=== PATIENT | male | born 1970 | race African-American/Black ===

== ENCOUNTER 2019-12-03 19:02 | Inpatient (IN) | payer MEDICARE, MEDICAID, SELFPAY ==
--- NOTE | ~2019-12-03 | US_ITS ---
EXAMINATION: US venous doppler [facility] DATE: 12/08/2019 09:18 INDICATION: Lower limb edema. Acute pulmonary embolus. TECHNIQUE: Grayscale ultrasound images without and with compression and Doppler ultrasound images of the bilateral lower extremity veins were obtained. COMPARISON: None. FINDINGS: The visualized portions of right common femoral vein, profunda (deep) femoral vein, femoral vein, pop liteal vein, peroneal veins, posterior tibial veins, and greater saphenous vein outflow are patent. S ubcutaneous edema is noted. The visualized portions of left common femoral vein, profunda femoral vein, femoral vein, popliteal v ein, peroneal veins, posterior tibial veins, and greater saphenous vein outflow are patent. Subcutane ous edema is noted. IMPRESSION: 1. No deep venous thrombosis. Reviewed, dictated and finalized at location A. WAREHOUSE MANAGER
--- NOTE | ~2019-12-03 | CT_ITS ---
EXAMINATION: CTA chest PE protocol DATE: 12/07/2019 08:53 INDICATION: Cough and shortness of breath. TECHNIQUE: Computed tomography angiography (CTA) of the chest was performed with 100 mL Omnipaque-350 intravenous contrast timed to evaluate the pulmonary arteries. Coronal maximum intensity projection 3D-reconstructions were created by the technologist. Automated exposure control and iterative reconst ruction technique were employed. The dose-length product was 529.13 mGy-cm. COMPARISON: None. FINDINGS: There are small pleural effusions. The lungs demonstrate groundglass opacities and smooth s eptal thickening, consistent with pulmonary edema. There is mild atelectasis bilaterally. There are a irspace opacities in right lower lobe, consistent with atelectasis versus pneumonia. Cardiomegaly is noted. There is a small pericardial effusion. The central pulmonary arteries are enlarged, consistent with pulmonary arterial hypertension. There is no pulmonary embolus. Body wall edema is noted. There are bridging endplate osteophytes at multiple levels in the spine, consistent with diffuse idiopathi c skeletal hyperostosis (DISH). IMPRESSION: 1. No pulmonary embolus. 2. Mild pulmonary edema. 3. Small pleural effusions. 4. Airspace opacities in right lower lobe, consistent with atelectasis versus pneumonia. 5. Cardiomegaly. 6. Small pericardial effusion. Reviewed, dictated and finalized at location A. AP MAN IMPRESSION: 1. No pulmonary embolus. 2. Mild pulmonary edema. 3. Small pleural effusions. 4. Airspace opacities in right lower lobe, consistent with atelectasis versus p neumonia. 5. Cardiomegaly. 6. Small pericardial effusion.
--- NOTE | ~2019-12-03 | XR_ITS ---
EXAMINATION: XR chest 2V EXAM DATE: 12/03/2019 19:59 INDICATION: Shortness of breath, history of lung disease. TECHNIQUE: Frontal and lateral projections of the chest obtained and reviewed. There is no prior harlan dy for comparison. FINDINGS: There is cardiomegaly and pulmonary vascular congestion. There is indistinct reticulation with a bibasal predominance which may indicate pulmonary edema. Small to moderate bilateral pleural e ffusions. Overall appearance is consistent with CHF exacerbation. No pneumothorax. Patient has diffus e idiopathic skeletal hyperostosis (DISH). IMPRESSION: Findings consistent with moderate CHF exacerbation. Reviewed, dictated and finalized at location A. NOL OPERATIONS MANAGER
--- NOTE | 2019-12-03 19:07 | ECG_ITS ---
Measurements Intervals [place] Rate: 96 P: 35 IA: 150 QRS: 72 QRSD: 93 T: 0 QT: 371 QTc: 469 Interpretive Statements SINUS RHYTHM POSSIBLE LEFT ATRIAL ENLARGEMENT LOW QRS VOLTAGE IN PRECORDIAL LEADS DELAYED PRECORDIAL R/S TRANSITION BORDERLINE T WAVE ABNORMALITY- INF/LAT LEADS BORDERLINE ECG Electronically Signed On 12-03-2019 19:46:13 TICKET SCHEDULER by Kory Soliz D.O.
[2019-12-03 19:08] VITALS: BP 180/118; PULSE 103; RESP 20; TEMP 36.8; O2SAT 100
[2019-12-03 19:22] LABS: Basophils Percent Auto 0.2 % (0.2-1.2); Eosinophils Percent Auto 0.3 % (0-4.4); Hematocrit 38.4 % (42.0-52.0); Hemoglobin 11.8 g/dL (14.0-18.0); Immature Granulocyte Absolute 0.04 K/mm3 (0.00-0.031); Immature Granulocyte Percent A 0.6 % (0-0.5); Lymphocytes Percent Auto 16.7 % (18.3-44.2); Mean Corpuscular HGB Conc 30.7 g/dl (32-36); Mean Corpuscular Hemoglobin 24.8 pg (26-34); Mean Corpuscular Volume 80.7 fl (80-100); Monocytes Absolute Auto 0.6 K/mm3 (0.1-0.6); Monocytes Percent Auto 9.6 % (2.6-8.5); Neutrophils Absolute Auto 4.8 K/mm3 (1.3-6.7); Neutrophils Percent Auto 72.6 % (45.5-73.1); Platelet Count Result 662 k/mm3 (150-375); Red Blood Count 4.76 M/mm3 (4.6-6.20); White Blood Count 6.6 K/mm3 (4.5-10.0)
[2019-12-03 19:33] LABS: Blood Urea Nitrogen 49 mg/dL (9-20); Calcium 8.2 mg/dL (8.4-10.2); Carbon Dioxide 24 mmol/L (22-30); Chloride 104 mmol/L (98-107); Estimated CRCL calculation 72 ml/min; Estimated Glomerular Filt Rate > 60; Glucose 111 mg/dL (75-110); Potassium 3.6 mmol/L (3.4-5.0); Sodium 138 mmol/L (137-145)
[2019-12-03 22:00] VITALS: O2SAT 98
[2019-12-03 22:26] VITALS: BP 172/129; PULSE 101; PULSE 99; RESP 28; O2SAT 100
--- NOTE | 2019-12-03 22:27 | ED.SOB ---
HPI - SOB/Dyspnea General Chief Complaint: Shortness of Breath/Dyspnea Stated Complaint: sob Time Seen by Provider: 12/03/19 22:15 Source: patient and RN notes reviewed Mode of arrival: ambulatory Limitations: no limitations History of Present Illness HPI Narrative: Pt is a 49 y/o male presenting to the ED c/o SOB. Pt reports he has been experiencing SOB for about 3 weeks. Pt's mother at bedside notes the pt was seen at [facility] about 2 weeks ago where he was diagnosed with CHF and Cardiomegaly, and prescribed a diuretic. Pt also reports BLE swelling, but denies CP. Per mother, the pt has not been taking his medications appropriately and has not followed up with a Pulverizer Operator. Pt states he quit smoking years ago. Pt notes he does not normally lay supine due to L-Spine Arthritis. Pertinent past history: congestive heart failure Onset (ago): week(s) (3) Associated symptoms: other (BLE swelling) Review of Systems Review of Systems: All systems reviewed & are unremarkable except as noted in HPI and below Cardiovascular: Cardiovascular: Denies chest pain Respiratory: Respiratory: Reports dyspnea Integumentary/Breasts: Skin/Breast: Reports swelling (BLE) [facility] Past Medical History Medical History Cardiomegaly CHF (congestive heart failure) HTN (hypertension) Surgical History Surgical History No significant past surgical history Social History Social History Smoking status: Former smoker Gender identity (if verbalized by the patient): Male Exam Narrative: Exam Narrative: APPEARANCE: No acute distress, nontoxic, resting in bed EYES: EOMI HEENT: Normocephalic, atraumatic, OMM RESPIRATORY: No respiratory distress crackles in bilateral bases CARDIOVASCULAR: Regular rate and rhythm without murmurs rubs or gallops. ABDOMINAL: Soft, nontender, nondistended, no rebound or guarding MUSCULOSKELETAl: Moves all extremities. No clubbing, cyanosis 4+ edema in the bilateral lower extremities NEURO: Awake and alert. Following commands, speech normal, no focal deficits SKIN:: Warm, dry. No rashes lesions or abrasions PSYCHIATRIC: Normal affect/mood, Course Course Emergency Course: Discussed with Dr. Peralta presentation work-up. Agrees with admission at this time Discussed with patient and family results of workup and diagnosis. Discussed need for admission. Patient and family understand and agree to current treatment plan Vital Signs Vital signs: Vital Signs Temperature 98.3 F 12/03/19 19:08 Pulse Rate 103 H 12/03/19 19:08 Respiratory Rate 20 12/03/19 19:08 Blood Pressure 180/118 H 12/03/19 19:08 Pulse Oximetry 100 12/03/19 19:08 Temperature 98.3 F 12/03/19 19:08 Pulse Rate 101 H 12/03/19 22:26 Respiratory Rate 28 H 12/03/19 22:26 Blood Pressure 172/129 H 12/03/19 22:26 Pulse Oximetry 100 12/03/19 22:26 MDM - SOB/Dyspnea Lab Data Result diagrams: 12/03/19 19:13 12/03/19 19:13 Labs: Lab Results 12/03/19 12/03/19 12/03/19 Range/Units 19:13 19:13 23:04 WBC 6.6 (4.5-10.0) K/mm3 RBC 4.76 (4.6-6.20) M/mm3 Hgb 11.8 L (14.0-18.0) g/dL Hct 38.4 L (42.0-52.0) % MCV 80.7 (80-100) fl MCH 24.8 L (26-34) pg MCHC 30.7 L (32-36) g/dl RDW 19.0 H (11.5-14.5) % Plt Count 662 H (150-375) k/mm3 MPV 9.0 (7.4-10.4) fl Immature Gran % (Auto) 0.6 H (0-0.5) % Neut % (Auto) 72.6 (45.5-73.1) % Lymph % (Auto) 16.7 L (18.3-44.2) % [place] % (Auto) 9.6 H (2.6-8.5) % Eos % (Auto) 0.3 (0-4.4) % Baso % (Auto) 0.2 (0.2-1.2) % Lymph # (Auto) 1.10 (0.9-3.2) K/mm3 [place] # (Auto) 0.6 (0.1-0.6) K/mm3 Eos # (Auto) 0.0 (0-0.3) K/mm3 Baso # (Auto) 0.0 (0.0-0.1) K/mm3 Abs Immat Gran (auto) 0.04 H (0.00-0.031) K/mm3 Absolute Neuts (auto) 4.8 (1.3-6.7) K/mm
[2019-12-03 23:10] VITALS: PULSE 98; RESP 12; O2SAT 98
[2019-12-03 23:24] LABS: INR 1.4; Partial Thromboplastin Time 24.5 SECONDS (22.3-36.8); Prothrombin Time 16.7 Seconds (11.1-14.7)
[2019-12-03 23:38] LABS: NT Pro B Type Natriuretic Pept 9820 PG/ML (5-100); Troponin I 0.032 ng/mL (0.000-0.034)
[2019-12-04] VITALS (15 sets, daily range): BP systolic 155–183; BP diastolic 80–123; PULSE 88–109; RESP 16–30; TEMP 36.1–37.2; O2SAT 94–100; BMI 34.4
[2019-12-04] MEDS: FUROSEMIDE INJ 40 MG/4 ML VIAL IV PUSH ×3 (00:17→22:04)
[2019-12-04] MEDS: NITROGLYCERIN OINTMENT 1 INCH DOSE 0.5 INCH TRANSDERM (00:18)
--- NOTE | 2019-12-04 01:58 | ADMGEN ---
This patient, Modesto Kim, was admitted to Medical Room 342-01. Patient/family oriented to hospital policies and general routines including ID bracelet, bed and alarms, visiting hours, pain management, procedures, bathroom and other care routines, personal items, smoking policy, room service/diet, and visiting hours. Valuables list has been completed. Information on how to activate the Rapid Response Team has been discussed. Patient/Family are encouraged to report perceived risks to care and to ask questions if they do not understand what they are told or what they should do.
[2019-12-04 04:30] LABS: Troponin I 0.034 ng/mL (0.000-0.034)
[2019-12-04 06:52] LABS: Troponin I 0.035 ng/mL (0.000-0.034)
--- NOTE | 2019-12-04 07:45 | PC.NURSE ---
MOTHER OF PATIENT STATES THAT HE USES [id number] TO FILL HIS MEDS. CALLED [facility] TO VERIFY MEDICATIONS. PHARMACIST STATED THAT PATIENT IN FACT HAD MEDICATIONS CALLED IN BY PHYSICIANS DATED BACK IN OCTOBER OF 2018. UNFORTUNATELY, THOSE MEDS WERE NEVER RETRIEVED BY THE PATIENT.
--- NOTE | 2019-12-04 08:43 | PM.IMHP ---
H&P: HPI History of Present Illness Chief complaint: CHF Narrative: Modesto Kim is a 49 year old male Who presented emergency room for swelling and shortness of breath. Patient states that this all started 4 weeks ago and he was hospitalized 1-2 weeks ago at [place] for this and was hospitalized for 3 days. He said after he was discharged from the hospital he felt a lot better and went home and it got worse. He said he was prescribed clonidine and hydrochlorothiazide and has been taking that but we called his pharmacy and they have no record of that. Patient states he has been having shortness of breath with rest and minor activity. He gets short of breath just walking to the bathroom. He states that his stomach is more distended, his hands are swollen, and his legs are swollen. He also mentions that his scrotum is swelling and actually has a split in it. He thinks this is from shaving in July but he has not had much discharge from it. The patient denies chest pain, nausea, vomiting, fevers, chills, headache, pain anywhere, previous DC or previous heart catheterization. Cannot tell me what type of heart failure he has. His last echo was at [facility] weeks ago. Unsure if he got a stress test but doesn't think so. He has not changed his diet and he tries to stay way from salt. His normal diet includes fish, spaghetti, and turkey. He does not recall ever trying a statin medication. He said he was diagnosed with schizophrenia when he was 16 but he prayed about it and now no longer has it and does not take any medications for. He does not see a master automotive glass technician. Review of Systems Review of Systems: All systems reviewed & are unremarkable except as noted in HPI and below PMFSH Past Medical History Medical History (Updated 12/04/19 @ 08:56 by Pretty Myrick PA-C) Cardiomegaly CHF (congestive heart failure) HTN (hypertension) Surgical History Surgical History (Updated 12/04/19 @ 08:50 by Pretty Myrick PA-C) H/O eye surgery No significant past surgical history Family History Family History (Updated 12/04/19 @ 08:51 by Pretty Myrick PA-C) Mother Healthy female Father Healthy male adult Sibling Asthma Social History Social History (Updated 12/04/19 @ 08:51 by Pretty Myrick PA-C) Social History: patient states that he does not smoke and has not done so for 20 years. He cannot tell me exactly how much he used to smoke before that but says it was a lot. He does not do any drugs. He drinks alcohol every once in a while. He is on disability due to back pain. Smoking packs per day: 3 Smoking cigarettes per day: 60.0 Smoking status: Former smoker Tobacco type: cigars Second hand tobacco smoke exposure: Yes Alcohol intake: current Drinks per week: 3 Substance use: never Gender identity (if verbalized by the patient): Male Spiritual care concerns: Yes Agree to blood products: Yes Meds Home Medications and Allergies Allergies Allergy/AdvReac Type Severity Reaction Status Date / Time No Known Allergies Allergy Verified 12/04/19 01:01 Vital Signs Vital Signs - 24 hr 12/03/19 19:08 12/03/19 22:00 12/03/19 22:26 Temperature 98.3 F Pulse Rate 103 H 99 Respiratory Rate 20 28 H Blood Pressure 180/118 H 172/129 H Pulse Oximetry 100 98 100 12/03/19 23:10 12/04/19 00:42 12/04/19 01:09 Temperature 99.0 F Pulse Rate 98 100 Respiratory Rate 12 30 H Blood Pressure 160/80 H 183/123 H Pulse Oximetry 98 100 12/04/19 01:41 12/04/19 02:00 12/04/19 06:00 Temperature 97.9 F 97.0 F L Pulse Rate 106 H 109 H 98 Respiratory Rate 27 H 20 Blood Pressure 174/120 H 159/114 H Pulse Oximetry 98 97 Exam Narrative: Exam Narrative: General: Overweight patient resting comfortably in bed in no acute distress HEENT: Normocephalic, atraumatic, PERRL, Sclerae anicteric, oral mucosa moist. Neck: Supple Resp: crackles at the bases. good air flow. Patien
[2019-12-04] MEDS: POTASSIUM CHLORIDE 20 MEQ TABLET.ER PO ×2 (11:00→16:52)
[2019-12-04] MEDS: METOPROLOL TARTRATE 25 MG TABLET PO ×2 (11:00→22:02)
[2019-12-04] MEDS: SILVERGEL (ELTA) 45 ML 1 APPLIC TOPICAL (12:53)
[2019-12-04] MEDS: hydrALAZINE HCL 20 MG/ML VIAL 10 MG IV PUSH (16:51)
--- NOTE | 2019-12-04 16:57 | PC.NURSE ---
Patient took shower and has no dressing on his scrotal wound area. He refuses to have dressing replaced to scrotal wound. He also refuses to wear scrotal support. He was instructed the benefits of wearing it and still refuses.
[2019-12-04 17:33] LABS: Add Urine Microscopic? YES; Appearance Urine Clear (Clear); Bilirubin Urine Negative (Negative); Blood Urine 1+ (Negative); Color Urine Colorless (Yellow); Glucose Urine UA Negative (Negative); Ketones Urine Negative (Negative); Leukocyte Esterase Ur Negative LEU/UL (Negative); Nitrate Urine Negative (Negative); Protein Urine 2+ mg/dL (Negative); RBC Urine 0-2 /hpf (0-2); Specific Grav Ur 1.008 (1.001-1.035); Urobilinogen Urine Negative mg/dL (<2.0); WBC Urine 0-3 /hpf
--- NOTE | 2019-12-04 18:30 | PC.NURSE ---
Sent fax to [facility] for medical release of patient information.
[2019-12-05] VITALS (11 sets, daily range): BP systolic 141–166; BP diastolic 94–104; PULSE 85–95; RESP 16–20; TEMP 36.4–37; O2SAT 100
[2019-12-05 06:07] LABS: Basophils Percent Auto 0.3 % (0.2-1.2); Eosinophils Absolute Auto 0.1 K/mm3 (0-0.3); Hemoglobin 10.8 g/dL (14.0-18.0); Immature Granulocyte Absolute 0.04 K/mm3 (0.00-0.031); Immature Granulocyte Percent A 0.6 % (0-0.5); Lymphocytes Absolute Auto 0.89 K/mm3 (0.9-3.2); Lymphocytes Percent Auto 12.4 % (18.3-44.2); Mean Corpuscular HGB Conc 30.9 g/dl (32-36); Mean Corpuscular Hemoglobin 24.8 pg (26-34); Mean Corpuscular Volume 80.3 fl (80-100); Mean Platelet Volume 9.1 fl (7.4-10.4); Monocytes Absolute Auto 0.8 K/mm3 (0.1-0.6); Monocytes Percent Auto 10.8 % (2.6-8.5); Neutrophils Absolute Auto 5.4 K/mm3 (1.3-6.7); Neutrophils Percent Auto 74.9 % (45.5-73.1); Nucleated Red Blood Cells Perc 0.3 % (0.0-0.2); Platelet Count Result 518 k/mm3 (150-375); Red Blood Count 4.36 M/mm3 (4.6-6.20); Red Cell Distribution Width 18.5 % (11.5-14.5); White Blood Count 7.2 K/mm3 (4.5-10.0)
[2019-12-05 06:43] LABS: Blood Urea Nitrogen 33 mg/dL (9-20); Calcium 7.9 mg/dL (8.4-10.2); Carbon Dioxide 27 mmol/L (22-30); Chloride 107 mmol/L (98-107); Estimated CRCL calculation 92 ml/min; Estimated Glomerular Filt Rate > 60; Glucose 85 mg/dL (75-110); Potassium 3.3 mmol/L (3.4-5.0); Sodium 140 mmol/L (137-145)
[2019-12-05 06:44] LABS: Alanine Aminotransferase 67 U/L (4-50); Albumin Level 2.6 g/dL (3.5-5.1); Alkaline Phosphatase 118 U/L (38-126); Aspartate Amino Transferase 73 U/L (17-59); Bilirubin,Total 0.6 mg/dL (0.2-1.3); Blood Urea Nitrogen 34 mg/dL (9-20); Calcium 7.9 mg/dL (8.4-10.2); Carbon Dioxide 27 mmol/L (22-30); Chloride 106 mmol/L (98-107); Estimated CRCL calculation 101 ml/min; Estimated Glomerular Filt Rate > 60; Glucose 85 mg/dL (75-110); Magnesium 1.9 mg/dL (1.6-2.3); Phosphorus 2.6 mg/dL (2.5-4.5); Potassium 3.3 mmol/L (3.4-5.0); Sodium 140 mmol/L (137-145)
--- NOTE | 2019-12-05 08:09 | PM.CNCAR ---
Assessment and Plan Assessment and plan (1) Anasarca: Code(s): R60.1 - Generalized edema Status: Acute Assessment and Plan: Agree with diuresis, follow up input and outputs closely. (2) Congestive heart failure: Code(s): I50.9 - Heart failure, unspecified Status: Acute Assessment and Plan: He seems to have congestive heart failure likely is more if right heart component in view of significant anasarca, but however he seems to have underlying left ventricular systolic failure with left ventricular systolic dysfunction. Will get echocardiogram to further define that and treat accordingly. Will add lisinopril to his current regimen, agree with diuresis, follow up input and outputs closely (3) Hypertension: Code(s): I10 - Essential (primary) hypertension Status: Acute Assessment and Plan: Will add lisinopril for better blood pressure control, follow BUN and creatinine closely Additional Plan Thank you for allowing me to participate in this patient's care, I will be following up with you. Please do not hesitate to call me for any other inquiry History of Present Illness History of Present Illness Consult date/time: 12/05/19 08:09 49 years old gentleman, with history of hypertension, came to the hospital because of for progressive worsening shortness breath, with significant orthopnea and severe leg swelling and abdominal distention. He stated that he has been feeling fatigued and weak for the past few weeks but lately more progressive shortness breath and significant orthopnea for the past few days. Noted to have +3 edema in both legs and abdominal ascites. Denies any chest pain, he stated that he was told in the past that he has congestive heart failure but he does not have regular follow up with any barrel tester and drainer or with any doctor. Denies any chest pain, gets occasional palpitation but no dizziness no syncope. Has moderate disease orthopnea as above severe leg swelling Reason For Visit: CHF [facility] Past Medical History Medical History Cardiomegaly CHF (congestive heart failure) HTN (hypertension) Surgical History Surgical History H/O eye surgery No significant past surgical history Family History Family History Mother Healthy female Father Healthy male adult Sibling Asthma Social History Social History Social History: patient states that he does not smoke and has not done so for 20 years. He cannot tell me exactly how much he used to smoke before that but says it was a lot. He does not do any drugs. He drinks alcohol every once in a while. He is on disability due to back pain. Smoking packs per day: 3 Smoking cigarettes per day: 60.0 Smoking status: Former smoker Tobacco type: cigars Second hand tobacco smoke exposure: Yes Alcohol intake: current Drinks per week: 3 Substance use: never Gender identity (if verbalized by the patient): Male Spiritual care concerns: Yes Agree to blood products: Yes Meds Home Medications and Allergies Home Medications Medication Instructions Recorded Confirmed Type No Home Medications 12/06/19 12/06/19 History Allergies Allergy/AdvReac Type Severity Reaction Status Date / Time No Known Allergies Allergy Verified 12/04/19 01:01 Vital Signs Vital Signs - 24 hr 12/04/19 11:00 12/04/19 12:00 12/04/19 13:06 Temperature Pulse Rate 102 H 99 88 Respiratory Rate Blood Pressure 158/115 H Pulse Oximetry 12/04/19 14:00 12/04/19 16:00 12/04/19 18:00 Temperature 36.2 C L Pulse Rate 94 95 Respiratory Rate 16 Blood Pressure 170/111 H 173/107 H Pulse Oximetry 94 12/04/19 20:00 12/04/19 22:00 12/04/19 22:02 Temperature 36.6 C Pulse Rate 105 H 1
[2019-12-05] MEDS: FUROSEMIDE INJ 40 MG/4 ML VIAL IV PUSH ×2 (08:52→22:14)
[2019-12-05] MEDS: POTASSIUM CHLORIDE 20 MEQ TABLET.ER PO ×2 (08:52→17:21)
[2019-12-05] MEDS: METOPROLOL TARTRATE 25 MG TABLET PO ×2 (08:53→22:12)
[2019-12-05] MEDS: lisinopriL 20 MG TABLET PO (09:07)
[2019-12-05] MEDS: SPIRONOLACTONE 25 MG TABLET PO (09:07)
[2019-12-05] MEDS: POTASSIUM CHLORIDE 20 MEQ TABLET 40 MEQ PO (10:51)
--- NOTE | 2019-12-05 14:39 | PM.IMPN ---
Progress Note: A&P Assessment and Plan (1) Congestive heart failure: Code(s): I50.9 - Heart failure, unspecified Status: Acute Assessment and Plan: -----continue 40 mg of Lasix IV. Cardiology added spironolactone as well. Echo pending. Still waiting on records from [facility]. he was hospitaized for 3 days due to this a couple weeks ago. He said he got better but is now more swollen. It is questionable if he was taking his medications. Patient's troponins are high end of normal and completely flat. He has no chest pain. No ACS suspected. He did have 2+ protein in his urine so we will get a urine protein and creatinine to ensure this is not nephrotic syndrome. His albumin 2.6. Cardiology has been consulted. (2) Hypertension: Code(s): I10 - Essential (primary) hypertension Status: Acute Assessment and Plan: ----- Last blood pressure 141/97. Continue Lasix, metoprolol, and spironolactone. Lisinopril added 12/05. (3) Thrombocytosis: Code(s): D47.3 - Essential (hemorrhagic) thrombocythemia Status: Acute Assessment and Plan: ----- 518 today. Will monitor (4) Anasarca: Code(s): R60.1 - Generalized edema Status: Acute Assessment and Plan: ----- likely due to heart failure and waiting for echo. See above (5) Wound, open, scrotum or testes: Code(s): S31.30XA - Unspecified open wound of scrotum and testes, initial encounter Status: Acute Assessment and Plan: ----- patient thinks this is from shaving months ago but it really looks like a fissure due to scrotal swelling. We will do silver gel and monitor the area. scrotal sling would also be helpful. Time Spent With Patient Time with patient: 25 - 35 minutes Subjective Date/time seen: 12/05/19 14:39 Interval history: Pt is a 49-year-old male here for fluid overload likely CHF. Patient was seen today and states that he feels less short of breath. He still feels very swollen. He is upset that he cannot have more liquids than what we are giving him. He denies chest pain, shortness of breath, dyspnea on exertion, fevers, chills or abdominal pain. Review of Systems Review of Systems: All systems reviewed & are unremarkable except as noted in HPI and below Exam Narrative: Exam Narrative: General: Overweight patient resting comfortably in bed in no acute distress HEENT: Normocephalic Neck: Supple Resp: CTA Heart: RRR with no murmurs. No worrisome telemetry reviews Abd: Soft, distended. Positive bowel sounds . No pain to palpation Skin: Warm and dry Extremities: significant swelling in the lower extremities 3+. swelling to his hands as well : scrotum swollen with a Smith type wound due to swelling. Did not look acutely infected. Neuro: Alert and Oriented x4 . CN 2-12 intact. No focal neurological deficits. Objective Data Vital Signs Vital Signs: Vital Signs - 24 hr 12/04/19 16:00 12/04/19 18:00 12/04/19 20:00 Temperature Pulse Rate 95 105 H Respiratory Rate Blood Pressure 173/107 H Pulse Oximetry 12/04/19 22:00 12/04/19 22:02 12/05/19 00:00 Temperature 97.8 F Pulse Rate 101 H 100 91 Respiratory Rate 22 H Blood Pressure 155/100 H Pulse Oximetry 100 12/05/19 05:50 12/05/19 08:00 12/05/19 08:48 Temperature 97.5 F L Pulse Rate 95 95 95 Respiratory Rate 16 16 Blood Pressure 154/95 H 166/104 H Pulse Oximetry 100 100 12/05/19 08:53 12/05/19 11:36 Temperature Pulse Rate 95 Respiratory Rate Blood Pressure 141/97 H Pulse Oximetry Intake/Output Intake/Output: Intake & Output 12/02/19 12/03/19 12/04/19 12/05/19 23:59 23:59 23:59 23:59 Intake Total 2450 240 Output Total 3800 3250 Balance -1350 -3010 Meds/Results Medications: Active Medications Generic Name Dose Route Start Last Admin Trade Name Freq PRN Reason Stop Dose Admin Enoxaparin Sodium 40 mg
[2019-12-05 15:21] LABS: Creatinine Urine 19.7 mg/dL; Total Protein Urine Random 66 mg/dL
[2019-12-06] VITALS (12 sets, daily range): BP systolic 109–144; BP diastolic 71–96; PULSE 78–104; RESP 16–18; TEMP 36.1–36.3; O2SAT 94–99
--- NOTE | 2019-12-06 | ECHO_ITS ---
Patient Info Name: Modesto Kim Age: 49 years : 1970 Gender: Male Ht: 71 in Wt: 214 lbs BSA: 2.23 m2 HR: 90 bpm BP: 144 / 96 mmHg Technical Quality: Good Exam Date: 12/06/2019 11:05 AM Exam Location: [facility] Pulmonary Patient Status: Inpatient Admit Date: 12/04/2019 Staff Ordering Physician: Demetrio Martin MD Fur Pointer: Kevin Law, KAEL, RT Attending Provider: Pretty Myrick PA-C Exam Type: CA echo doppler color flow Study Info Indications I50.9 - Heart failure, unspecified Complete two-dimensional, color flow and Doppler transthoracic echocardiogram is performed. Summary 1. Left ventricular chamber dimension is normal. 2. There is moderately increased left ventricular wall thickness. 3. Left ventricular systolic function is normal, estimated at 25-30%. 4. There is moderate to severe mitral valve regurgitation. 5. There is mild to moderate tricuspid valve regurgitation. 6. No pulmonary hypertension, estimated pulmonary arterial systolic pressure is 48 mmHg. Left Ventricle Left ventricular chamber dimension is normal. Left ventricular systolic function is normal, estimated at 25-30%. There is moderately increased left ventricular wall thickness. Left ventricular septal wall motion is abnormal with septal motion related to bundle branch block. The left ventricular diastolic function is grade III diastolic dysfunction. Right Ventricle Right ventricular chamber dimension is mildly enlarged. Right ventricular systolic function is normal. Left Atria Left atrial chamber dimension is mildly enlarged. Right Atria Right atrial chamber dimension is normal. Aortic Valve The aortic valve is trileaflet. There is no aortic valve sclerosis. There is no aortic valve stenosis. There is no aortic valve regurgitation. Pulmonic Valve The pulmonic valve is normal. There is no pulmonic valve stenosis. There is no pulmonic regurgitation. Mitral Valve The mitral valve has thickened leaflets and myxomatous leaflets. There is no mitral valve stenosis. There is moderate to severe mitral valve regurgitation. Tricuspid Valve The tricuspid valve leaflets are normal. There is no significant tricuspid valve stenosis. There is mild to moderate tricuspid valve regurgitation. No pulmonary hypertension, estimated pulmonary arterial systolic pressure is 48 mmHg. Pericardium/Pleural The pericardium appears normal. There is no pericardial effusion. Inferior Vena Cava Normal inferior vena cava with >50% collapse upon inspiration consistent with significantly elevated right atrial pressure, 15 mmHg. Aorta The aortic root size at the sinus of Valsalva is normal. The prox ascending aorta size is normal. Left Ventricular Outflow Tract Name Value Normal LVOT 2D LVOT Diameter 2.0 cm LVOT Doppler LVOT Peak Gradient 1 mmHg LVOT Mean Gradient 1 mmHg LVOT VTI 8 cm LVOT VTI/AV VTI Ratio 0.8 LVOT Stroke Volume 24 ml LVOT CO
[2019-12-06 05:55] LABS: Alanine Aminotransferase 63 U/L (4-50); Albumin Level 2.7 g/dL (3.5-5.1); Alkaline Phosphatase 110 U/L (38-126); Aspartate Amino Transferase 66 U/L (17-59); Bilirubin,Total 0.7 mg/dL (0.2-1.3); Blood Urea Nitrogen 24 mg/dL (9-20); Calcium 8.1 mg/dL (8.4-10.2); Carbon Dioxide 30 mmol/L (22-30); Chloride 107 mmol/L (98-107); Estimated CRCL calculation 78 ml/min; Estimated Glomerular Filt Rate > 60; Glucose 78 mg/dL (75-110); Potassium 3.6 mmol/L (3.4-5.0); Sodium 142 mmol/L (137-145)
[2019-12-06] MEDS: POTASSIUM CHLORIDE 20 MEQ TABLET.ER PO ×2 (08:29→17:29)
[2019-12-06] MEDS: METOPROLOL TARTRATE 25 MG TABLET PO (08:30)
[2019-12-06] MEDS: SPIRONOLACTONE 25 MG TABLET PO (08:30)
[2019-12-06] MEDS: FUROSEMIDE INJ 40 MG/4 ML VIAL IV PUSH ×2 (08:30→20:49)
[2019-12-06] MEDS: lisinopriL 20 MG TABLET PO (08:30)
--- NOTE | 2019-12-06 09:37 | PM.PNCARD ---
Progress Note: A&P Assessment and Plan (1) Anasarca: Code(s): R60.1 - Generalized edema Status: Acute (2) Congestive heart failure: Qualifiers: Heart failure chronicity: acute on chronic Heart failure type: systolic Qualified Code(s): I50.23 - Acute on chronic systolic (congestive) heart failure Code(s): I50.9 - Heart failure, unspecified Status: Acute Assessment and Plan: Pt with hx of CHF and possible pulmonary embolism not compliant ECHO pending cont diuretics monotor electrolytes and kidney function (3) Hypertension: Code(s): I10 - Essential (primary) hypertension Status: Acute Assessment and Plan: BP relatively well controlled cont meds Subjective Date/time seen: 12/06/19 09:37 pt feels much better today His LE edema improved. No CP or SOB. Eager to go home Pt was seen and examined, chart reviewed, case d/w pt's nurse. Exam Const: General: no acute distress Nutritional Appearance: well nourished Orientation/consciousness: patient oriented x3 HENMT: Head: normal to inspection and atraumatic Ears: hearing grossly normal bilaterally Face and sinus: normal facial exam Eyes: General: appearance normal, both eyes and all related structures Pupils: Equal, round and reactive pupils present EOM: EOMs intact bilaterally Neck: Neck: supple Chest: Chest palpation & inspection: normal inspection of the chest Resp: Effort & Inspection: normal respiratory effort and no respiratory distress Auscultation: clear to auscultation bilaterally Cardio: Jugular venous distension: no JVD Rate: regular rate Heart sounds: S1 normal heart sound present, S2 normal heart sound present and no murmurs Peripheral pulses: Peripheral pulses 2+ throughout GI: GI Palp: No abdominal tenderness Auscultation: normal bowel sounds Skin: General skin exam: normal color Neuro: General: patient oriented x3 Cranial nerves: Yes Equal, round and reactive pupils present Extrem: General: edema (2+) bilateral Objective Data Vital Signs Vital Signs: Vital Signs - 24 hr 12/05/19 11:36 12/05/19 12:00 12/05/19 14:00 Temperature 37.0 C Pulse Rate 85 91 Respiratory Rate 20 Blood Pressure 141/97 H 144/94 H Pulse Oximetry 100 12/05/19 16:00 12/05/19 20:00 12/05/19 22:12 Temperature Pulse Rate 85 86 93 Respiratory Rate Blood Pressure Pulse Oximetry 12/06/19 00:00 12/06/19 04:43 12/06/19 05:05 Temperature 36.2 C L Pulse Rate 104 H 90 93 Respiratory Rate 18 Blood Pressure 144/96 H Pulse Oximetry 94 12/06/19 08:00 12/06/19 08:30 Temperature Pulse Rate 96 94 Respiratory Rate Blood Pressure Pulse Oximetry Intake/Output Intake/Output: Intake & Output 12/03/19 12/04/19 12/05/19 12/06/19 23:59 23:59 23:59 23:59 Intake Total 2450 2120 210 Output Total 3800 7550 1500 Balance -4921 -4974 -8867 Meds/Results Medications: Active Medications Generic Name Dose Route Start Last Admin Trade Name Freq PRN Reason Stop Dose Admin Enoxaparin Sodium 40 mg 12/04/19 09:05 12/06/19 08:30 Lovenox SUB-Q Not Given DAILY VERA Furosemide 40 mg 12/04/19 09:00 12/06/19 08:30 Lasix Inj IV PUSH 40 mg Q12HR VERA Administration Hydralazine HCl 10 mg 12/04/19 16:18 12/04/19 16:51 Apresoline Hcl Inj IV PUSH 10 mg Q6H PRN Administration Blood Pressure - High Lisinopril 20 mg 12/05/19 09:00 12/06/19 08:30 Prinivil PO 20 mg QAM VERA Administration Metoprolol Tartrate 25 mg 12/04/19 09:05 12/06/19 08:30 Lopressor PO 25 mg Q12HR VERA Administration Potassium Chloride 20 meq 12/04/19 08:00 12/06/19 08:29 Kcl Tablet PO 20 meq BIDWM VERA Administration Silver Nitrate 1 applic 12/04/19 09:00 12/04/19 12:53 Silvergel TOPICAL 1 applic Q72HR VERA Administration Spironolactone 25 mg 12/05/19 09:00 12/06/19 08:30 Aldactone PO 25 mg QAM VERA Admini
--- NOTE | 2019-12-06 10:11 | PM.IMPN ---
Progress Note: A&P Assessment and Plan (1) Congestive heart failure: Qualifiers: Heart failure chronicity: acute on chronic Heart failure type: systolic Qualified Code(s): I50.23 - Acute on chronic systolic (congestive) heart failure Code(s): I50.9 - Heart failure, unspecified Status: Acute Assessment and Plan: -----Diuresed 5L yesterday. pt records show systolic CHF with an EF of 35%. This is new onset from what they can tell and they recommended a cardiac cath and the pt refused. Pt was discharged on 12.5 carvediol, 10mg of lisinopril and aspirin at that time and did not pickle processor these medications. For now, continue 40 mg of Lasix IV. Cardiology added spironolactone as well. cardiology recommends repeating Echo and that is pending. Pts edema in his abdomen is better but still pretty swollen. They also found that he had a PE while he was there so we are interested in seeing his pulmonary pressure (could be more right sided HF since lungs are clear). Patient's troponins are high end of normal and completely flat. He has no chest pain. No acute ACS suspected. Nephrotic syndrome seems less likely with this new information. (2) Pulmonary emboli: Code(s): I26.99 - Other pulmonary embolism without acute cor pulmonale Status: Acute Assessment and Plan: -----New onset according to records. Will start xarelto, which is what he was discharged on at [facility]. It does mention that is was a possible PE on the CT. once pt is more stable may repeat CTA or VQ to see if we could get him off anticoagulation as he is not the most compliant pt. (3) Hypertension: Code(s): I10 - Essential (primary) hypertension Status: Acute Assessment and Plan: ----- Last blood pressure 144/96. Continue Lasix, coreg, lisinopril, and spironolactone. BP much better once he was placed on these medications. (4) Thrombocytosis: Code(s): D47.3 - Essential (hemorrhagic) thrombocythemia Status: Acute Assessment and Plan: ----- 518 yesterday. Will monitor (5) Anasarca: Code(s): R60.1 - Generalized edema Status: Acute Assessment and Plan: ----- likely due to heart failure and waiting for echo. See above (6) Wound, open, scrotum or testes: Code(s): S31.30XA - Unspecified open wound of scrotum and testes, initial encounter Status: Acute Assessment and Plan: ----- patient thinks this is from shaving months ago but it really looks like a fissure due to scrotal swelling. We will do silver gel and monitor the area. scrotal sling would also be helpful. (7) Transaminitis: Code(s): R74.0 - Nonspecific elevation of levels of transaminase and lactic acid dehydrogenase [LDH] Status: Acute Assessment and Plan: -----likely d/t congestion but will do hepatic screen tomorrow am. Liver CT at [facility] was reported unremarkable. Additional Plan ----- Patient is being admitted under observation but will likely be switched to inpatient. Supervising physician is Dr. Jeovany Spangler Subjective Date/time seen: 12/06/19 10:11 Interval history: Pt is a 49-year-old male here for fluid overload likely CHF. Patient was seen today and states that he does not feel short of breath. He still feels very swollen. He is upset that he cannot have more liquids than what we are giving him. He denies chest pain, shortness of breath, dyspnea on exertion, fevers, chills or abdominal pain. He reveals today that he and his cousin ate at the [facility] before coming in for his SOB/CHF. Exam Narrative: Exam Narrative: General: Overweight patient resting comfortably in bed in no acute distress HEENT: Normocephalic Neck: Supple Resp: CTA Heart: RRR with no murmurs. No worrisome telemetry reviews Abd: Soft, less distended today. Positive bowel sounds . No pain to palpation Skin: Warm and dry Extremities: significant swe
[2019-12-06] MEDS: ATORVASTATIN 40 MG TABLET PO (11:29)
[2019-12-06] MEDS: ASPIRIN 81 MG ENTERIC TABLET PO (11:29)
[2019-12-06] MEDS: carvediloL 12.5 MG TABLET PO ×2 (12:30→20:49)
[2019-12-06] MEDS: RIVAROXABAN 15 MG TABLET PO ×2 (12:30→17:29)
[2019-12-07] VITALS (11 sets, daily range): BP systolic 111–134; BP diastolic 78–88; PULSE 65–88; RESP 16; TEMP 36.2–36.6; O2SAT 100
[2019-12-07 06:09] LABS: Hematocrit 35.7 % (42.0-52.0); Hemoglobin 11.3 g/dL (14.0-18.0); Mean Corpuscular HGB Conc 31.7 g/dl (32-36); Mean Platelet Volume 9.2 fl (7.4-10.4); Platelet Count Result 462 k/mm3 (150-375); Red Blood Count 4.52 M/mm3 (4.6-6.20); Red Cell Distribution Width 18.3 % (11.5-14.5)
[2019-12-07 06:21] LABS: Alanine Aminotransferase 65 U/L (4-50); Albumin Level 2.8 g/dL (3.5-5.1); Alkaline Phosphatase 110 U/L (38-126); Aspartate Amino Transferase 70 U/L (17-59); Bilirubin,Total 0.7 mg/dL (0.2-1.3); Blood Urea Nitrogen 26 mg/dL (9-20); Calcium 8.3 mg/dL (8.4-10.2); Carbon Dioxide 28 mmol/L (22-30); Chloride 104 mmol/L (98-107); Cholesterol 84 mg/dL (0-200); Estimated CRCL calculation 72 ml/min; Estimated Glomerular Filt Rate > 60; Glucose 85 mg/dL (75-110); HDL Direct 23 mg/dL; Sodium 139 mmol/L (137-145); Triglycerides 72 mg/dL (<150)
[2019-12-07 06:22] LABS: LDL Cholesterol Direct 43 mg/dL
[2019-12-07 07:14] LABS: Potassium 4.1 mmol/L (3.4-5.0)
[2019-12-07 08:56] LABS: Hepatitis B Surface Antigen Negative (Negative)
[2019-12-07] MEDS: ASPIRIN 81 MG ENTERIC TABLET PO (09:17)
[2019-12-07] MEDS: SPIRONOLACTONE 25 MG TABLET PO (09:17)
[2019-12-07] MEDS: ATORVASTATIN 40 MG TABLET PO (09:17)
[2019-12-07] MEDS: SILVERGEL (ELTA) 45 ML 1 APPLIC TOPICAL (09:17)
[2019-12-07] MEDS: POTASSIUM CHLORIDE 20 MEQ TABLET.ER PO ×2 (09:17→17:45)
[2019-12-07] MEDS: RIVAROXABAN 15 MG TABLET PO ×2 (09:17→17:45)
[2019-12-07] MEDS: lisinopriL 20 MG TABLET PO (09:18)
[2019-12-07] MEDS: FUROSEMIDE INJ 40 MG/4 ML VIAL IV PUSH ×2 (09:18→21:09)
[2019-12-07] MEDS: carvediloL 12.5 MG TABLET PO ×2 (09:18→21:09)
[2019-12-07 09:23] LABS: HAV RESULT Negative (Negative); Hepatitis B Core IgM Result Negative (Negative); Hepatitis C Virus Antibody Negative (Negative)
--- NOTE | 2019-12-07 11:37 | PM.PNCARD ---
Progress Note: A&P Assessment and Plan (1) Anasarca: Code(s): R60.1 - Generalized edema Status: Acute (2) Congestive heart failure: Qualifiers: Heart failure chronicity: acute on chronic Heart failure type: systolic Qualified Code(s): I50.23 - Acute on chronic systolic (congestive) heart failure Code(s): I50.9 - Heart failure, unspecified Status: Acute Assessment and Plan: Systolic congestive heart failure. He needs ischemic evaluation for newly discovered cardiomyopathy but declined cath. Will consider stress test. He does not appear to have good insight to his illness. As for now he remains volume overloaded and needs further IV diuresing. Watch creatinine while diuresing. Creatinine 1.2 from 1.0. Off note he received contrast for CT rule out PE which was negative Will continue Coreg and Lisinopril WIll up titrate cardiac meds as BP allows . (3) Hypertension: Code(s): I10 - Essential (primary) hypertension Status: Acute Assessment and Plan: Well controlled Additional Plan Thank you for allowing me to participate in this patient's care, I will be following up with you. Please do not hesitate to call me for any other inquiry Subjective Date/time seen: 12/07/19 11:37 reports both breathing and leg edema are getting better. Frustrated from fluid restriction ordered. Would like to have more fluids drink Review of Systems Review of Systems: All systems reviewed & are unremarkable except as noted in HPI and below Constitutional: Constitutional: Denies fatigue and Denies headache(s) Eyes: Eyes: Denies blurry vision ENT: Reports Normal hearing present and Denies headache(s) Cardiovascular: Cardiovascular: Denies chest pain, Denies diaphoresis, Denies pedal edema, Denies leg edema, Denies lightheadedness, Denies palpitations and Denies dyspnea Respiratory: Respiratory: Denies cough and Denies dyspnea Gastrointestinal: Gastrointestinal: Denies abdominal pain Musculoskeletal: Musculoskeletal: Denies back pain Neurologic: Reports Normal hearing present and Denies headache(s) Psychiatric: Psychiatric: Denies anxiety Endocrine: Endocrine: Denies fatigue and Denies palpitations Exam Narrative: Exam Narrative: Awake alert oriented x3 not in acute distress Neck is supple, he has JVD, no carotid bruit Chest: Decreased breathing sound noted at the bases bilaterally Cardiovascular: Regular rate and rhythm, 2/6 systolic murmur noted left sternal border Abdomen: Soft nontender bowel sounds positive Extremities: +3 edema has good pulses distally bilaterally Const: General: no acute distress Nutritional Appearance: well nourished Orientation/consciousness: patient oriented x3 HENMT: Head: normal to inspection and atraumatic Ears: hearing grossly normal bilaterally Face and sinus: normal facial exam Eyes: General: appearance normal, both eyes and all related structures Pupils: Equal, round and reactive pupils present EOM: EOMs intact bilaterally Neck: Neck: supple Chest: Chest palpation & inspection: normal inspection of the chest Resp: Effort & Inspection: normal respiratory effort and no respiratory distress Auscultation: clear to auscultation bilaterally Cardio: Jugular venous distension: no JVD Rate: regular rate Heart sounds: S1 normal heart sound present, S2 normal heart sound present and no murmurs Peripheral pulses: Peripheral pulses 2+ throughout GI: Auscultation: normal bowel sounds Skin: General skin exam: normal color Neuro: General: patient oriented x3 Cranial nerves: Yes Equal, round and reactive pupils present Extrem: General: edema (2+) bilateral Objective Data Vital Signs Vital Signs: Vital Signs - 24 hr 12/06/19 12:00 12/06/19 12:30 12/06/19 14:00 Temperature 36.1 C L Pulse Rate 88 97 95 Respiratory Rate 16 Blood Pressure 109/71 Pulse Oximetry 99 12/06/19 16:00 12/06/19 20:00 12/06/19 20:38 Tem
--- NOTE | 2019-12-07 16:21 | P.PNIM_ITS ---
Progress Note: A&P Assessment and Plan (1) Congestive heart failure: Qualifiers: Heart failure chronicity: acute on chronic Heart failure type: systolic Qualified Code(s): I50.23 - Acute on chronic systolic (congestive) heart failure Code(s): I50.9 - Heart failure, unspecified Status: Acute Assessment and Plan: * Patient records from 11/13/19 - 11/16/19 admission at [facility] reviewed. * Echocardiogram shows reduced systolic function, EF 25-30%. Cardiac catheterization was recommended at [facility] a few weeks ago and he refused. He was discharged on 12.5 mg carvedilol BID, 10 mg lisinopril and ASA at that time and reportedly did not bean picker these medications. Remains on IV diuresis today with Lasix BID. Fluid restriction increased. * No chest pain. Troponins flat. No ACS suspected. * Cardiology following -appreciate recommendations. (2) Pulmonary emboli: Code(s): I26.99 - Other pulmonary embolism without acute cor pulmonale Status: Acute Assessment and Plan: * CTA from [facility] 11/13/19 reads ?possible nonocclusive subsegmental right lower lobe pulmonary embolism and he was discharged on Xarelto. I am unsure if he picked up the Xarelto. * Repeat CT today is negative for pulmonary embolism. * Venous Dopplers of lower extremities was ordered today, and patient refused w hile down in Radiology. * I contacted [facility] today and discussed his case with hospitalist, as his r ecords showed venous Dopplers were ordered there a couple weeks ago but no results on the records. She confirms that the venous Dopplers were ordered, but not performed and believes he may have refused them at that time as well. * RN reports they will attempt venous dopplers again tomorrow. Until then, he remains on Xarelto and appreciate cardiology input. (3) Hypertension: Code(s): I10 - Essential (primary) hypertension Status: Acute Assessment and Plan: * BP stable. Continue Lasix, coreg, lisinopril, and spironolactone. (4) Thrombocytosis: Code(s): D47.3 - Essential (hemorrhagic) thrombocythemia Status: Acute Assessment and Plan: * Improving. Will monitor. (5) Anasarca: Code(s): R60.1 - Generalized edema Status: Acute Assessment and Plan: * Fluid overload secondary to CHF exacerbation. Continue diuresis with help from cardiology. (6) Wound, open, scrotum or testes: Code(s): S31.30XA - Unspecified open wound of scrotum and testes, initial encounter Status: Acute Assessment and Plan: * Fissure likely from scrotal swelling. Continue silver gel and monitor. (7) Transaminitis: Code(s): R74.0 - Nonspecific elevation of levels of transaminase and lactic acid dehydrogenase [LDH] Status: Acute Assessment and Plan: * Likely secondary to hepatic congestion. Hepatitis panel is negative. Abdominal CT at outside hospital reports unremarkable appearance to liver. Subjective Date/time seen: 12/07/19 1500 Interval history: Mr. Kim is a 49yo M admitted with fluid overload and CHF. He feels that his swelling has improved. He denies any chest pain, sh ortness of breath, or abdominal pain. Tolerating PO intake without nausea or vomiting. Review of Systems Review of Systems: Narrative: Twelve systems were reviewed with pertinent posi tives and negatives as per HPI.
--- NOTE | 2019-12-07 16:21 | PM.IMPN ---
Progress Note: A&P Assessment and Plan (1) Congestive heart failure: Qualifiers: Heart failure chronicity: acute on chronic Heart failure type: systolic Qualified Code(s): I50.23 - Acute on chronic systolic (congestive) heart failure Code(s): I50.9 - Heart failure, unspecified Status: Acute Assessment and Plan: Patient records from 11/13/19 - 11/16/19 admission at [facility] reviewed. Echocardiogram shows reduced systolic function, EF 25-30%. Cardiac catheterization was recommended at [facility] a few weeks ago and he refused. He was discharged on 12.5 mg carvedilol BID, 10 mg lisinopril and ASA at that time and reportedly did not fern picker these medications. Remains on IV diuresis today with Lasix BID. Fluid restriction increased. No chest pain. Troponins flat. No ACS suspected. Cardiology following -appreciate recommendations. (2) Pulmonary emboli: Code(s): I26.99 - Other pulmonary embolism without acute cor pulmonale Status: Acute Assessment and Plan: CTA from [facility] 11/13/19 reads ?possible nonocclusive subsegmental right lower lobe pulmonary embolism and he was discharged on Xarelto. I am unsure if he picked up the Xarelto. Repeat CT today is negative for pulmonary embolism. Venous Dopplers of lower extremities was ordered today, and patient refused while down in Radiology. I contacted [facility] today and discussed his case with hospitalist, as his records showed venous Dopplers were ordered there a couple weeks ago but no results on the records. She confirms that the venous Dopplers were ordered, but not performed and believes he may have refused them at that time as well. RN reports they will attempt venous dopplers again tomorrow. Until then, he remains on Xarelto and appreciate cardiology input. (3) Hypertension: Code(s): I10 - Essential (primary) hypertension Status: Acute Assessment and Plan: BP stable. Continue Lasix, coreg, lisinopril, and spironolactone. (4) Thrombocytosis: Code(s): D47.3 - Essential (hemorrhagic) thrombocythemia Status: Acute Assessment and Plan: Improving. Will monitor. (5) Anasarca: Code(s): R60.1 - Generalized edema Status: Acute Assessment and Plan: Fluid overload secondary to CHF exacerbation. Continue diuresis with help from cardiology. (6) Wound, open, scrotum or testes: Code(s): S31.30XA - Unspecified open wound of scrotum and testes, initial encounter Status: Acute Assessment and Plan: Fissure likely from scrotal swelling. Continue silver gel and monitor. (7) Transaminitis: Code(s): R74.0 - Nonspecific elevation of levels of transaminase and lactic acid dehydrogenase [LDH] Status: Acute Assessment and Plan: Likely secondary to hepatic congestion. Hepatitis panel is negative. Abdominal CT at outside hospital reports unremarkable appearance to liver. Subjective Date/time seen: 12/07/19 1500 Interval history: Mr. Kim is a 49yo M admitted with fluid overload and CHF. He feels that his swelling has improved. He denies any chest pain, shortness of breath, or abdominal pain. Tolerating PO intake without nausea or vomiting. Review of Systems Review of Systems: Narrative: Twelve systems were reviewed with pertinent positives and negatives as per HPI. Exam Narrative: Exam Narrative: General: Male sitting on the edge of the bed in no acute distress. HEENT: Normocephalic, EOMI, oral mucosa moist. Cardiovascular: Rate and rhythm are regular. Telemetry review shows sinus tachycardia, rate 78. Respiratory: Clear to auscultation. Abdomen: Soft, mildly distended, nontender, bowel sounds present. Extremities: 2+ edema to bilateral
[2019-12-08] VITALS (11 sets, daily range): BP systolic 123–131; BP diastolic 84–94; PULSE 74–88; RESP 17–18; TEMP 36.1–36.2; O2SAT 96–100
[2019-12-08 05:38] LABS: Hematocrit 35.6 % (42.0-52.0); Hemoglobin 11.1 g/dL (14.0-18.0); Mean Corpuscular HGB Conc 31.2 g/dl (32-36); Mean Corpuscular Hemoglobin 24.8 pg (26-34); Mean Corpuscular Volume 79.6 fl (80-100); Platelet Count Result 425 k/mm3 (150-375); Red Blood Count 4.47 M/mm3 (4.6-6.20); Red Cell Distribution Width 18.2 % (11.5-14.5); White Blood Count 4.7 K/mm3 (4.5-10.0)
[2019-12-08 05:57] LABS: Blood Urea Nitrogen 30 mg/dL (9-20); Calcium 8.3 mg/dL (8.4-10.2); Carbon Dioxide 28 mmol/L (22-30); Chloride 105 mmol/L (98-107); Estimated CRCL calculation 74 ml/min; Estimated Glomerular Filt Rate > 60; Glucose 85 mg/dL (75-110); Magnesium 2.1 mg/dL (1.6-2.3); Phosphorus 3.6 mg/dL (2.5-4.5); Potassium 4.3 mmol/L (3.4-5.0); Sodium 139 mmol/L (137-145)
[2019-12-08] MEDS: carvediloL 12.5 MG TABLET PO ×2 (08:37→21:26)
[2019-12-08] MEDS: SPIRONOLACTONE 25 MG TABLET PO (08:37)
[2019-12-08] MEDS: FUROSEMIDE INJ 40 MG/4 ML VIAL IV PUSH ×2 (08:38→21:26)
[2019-12-08] MEDS: POTASSIUM CHLORIDE 20 MEQ TABLET.ER PO (08:38)
[2019-12-08] MEDS: ASPIRIN 81 MG ENTERIC TABLET PO (08:38)
[2019-12-08] MEDS: lisinopriL 20 MG TABLET PO (08:39)
[2019-12-08] MEDS: RIVAROXABAN 15 MG TABLET PO (08:39)
[2019-12-08] MEDS: ATORVASTATIN 40 MG TABLET PO (08:39)
--- NOTE | 2019-12-08 09:31 | PM.PNCARD ---
Progress Note: A&P Assessment and Plan (1) Congestive heart failure: Qualifiers: Heart failure chronicity: acute on chronic Heart failure type: systolic Qualified Code(s): I50.23 - Acute on chronic systolic (congestive) heart failure Code(s): I50.9 - Heart failure, unspecified Status: Acute Assessment and Plan: Systolic congestive heart failure. Ischemic vs non ischemic cardiomyopathy. He is declining left heart cath so far but today more open to think about it. He remains volume overloaded Continue IV lasix. Creatinine up to 1.3 but that is possibly related to newly introduced Lisinopril and Spironolactone. Also received contrast for CT rule out PE Will continue current dose of Lasix Continue Coreg 12.5 Follow in/out. Follow creatinine and electrolytes WIll up titrate cardiac meds as BP allows . (2) Anasarca: Code(s): R60.1 - Generalized edema Status: Acute Assessment and Plan: better. Continue IV diuresing (3) Hypertension: Code(s): I10 - Essential (primary) hypertension Status: Acute Assessment and Plan: Well controlled Additional Plan Thank you for allowing me to participate in this patient's care, I will be following up with you. Please do not hesitate to call me for any other inquiry Subjective Date/time seen: 12/08/19 09:31 Seen at radiology, had US lower ext to rule out DVT. Pending results Feels better overall. He continues to decline cath. States he will eat more healthy food, start to exercise and that should get his heart better. Review of Systems Review of Systems: All systems reviewed & are unremarkable except as noted in HPI and below Constitutional: Constitutional: Denies fatigue and Denies headache(s) Eyes: Eyes: Denies blurry vision ENT: Reports Normal hearing present and Denies headache(s) Cardiovascular: Cardiovascular: Denies chest pain, Denies diaphoresis, Denies pedal edema, Denies leg edema, Denies lightheadedness, Denies palpitations and Denies dyspnea Respiratory: Respiratory: Denies cough and Denies dyspnea Gastrointestinal: Gastrointestinal: Denies abdominal pain Musculoskeletal: Musculoskeletal: Denies back pain Neurologic: Reports Normal hearing present and Denies headache(s) Psychiatric: Psychiatric: Denies anxiety Endocrine: Endocrine: Denies fatigue and Denies palpitations Exam Narrative: Exam Narrative: Awake alert oriented x3 not in acute distress Neck is supple, he has JVD, no carotid bruit Chest: Decreased breathing sound noted at the bases bilaterally Cardiovascular: Regular rate and rhythm, 2/6 systolic murmur noted left sternal border Abdomen: Soft nontender bowel sounds positive Extremities: +3 edema has good pulses distally bilaterally Const: General: no acute distress Nutritional Appearance: well nourished Orientation/consciousness: patient oriented x3 HENMT: Head: normal to inspection and atraumatic Ears: hearing grossly normal bilaterally Face and sinus: normal facial exam Eyes: General: appearance normal, both eyes and all related structures Pupils: Equal, round and reactive pupils present EOM: EOMs intact bilaterally Neck: Neck: supple Chest: Chest palpation & inspection: normal inspection of the chest Resp: Effort & Inspection: normal respiratory effort and no respiratory distress Auscultation: clear to auscultation bilaterally Cardio: Jugular venous distension: no JVD Rate: regular rate Heart sounds: S1 normal heart sound present, S2 normal heart sound present and no murmurs Peripheral pulses: Peripheral pulses 2+ throughout GI: Auscultation: normal bowel sounds Skin: General skin exam: normal color Neuro: General: patient oriented x3 Cranial nerves: Yes Equal, round and reactive pupils present and Yes Normal hearing present Extrem: General: edema (2+) bilateral Objective Data Vital Signs Vital Signs: Vital Signs - 24 hr 12/07/19 12:35
--- NOTE | 2019-12-08 12:16 | PCDIET ---
Physician consult for Heart Healthy Diet, Fluid Restriction. Patient educated today all information given at bedside. Patient Instruction also attached. Thank you for the consult.
--- NOTE | 2019-12-08 13:07 | PM.IMPN ---
Progress Note: A&P Assessment and Plan (1) Congestive heart failure: Qualifiers: Heart failure chronicity: acute on chronic Heart failure type: systolic Qualified Code(s): I50.23 - Acute on chronic systolic (congestive) heart failure Code(s): I50.9 - Heart failure, unspecified Status: Acute Assessment and Plan: Patient records from 11/13/19 - 11/16/19 admission at [place] reviewed. Echocardiogram shows reduced systolic function, EF 25-30%. Cardiac catheterization was recommended at [place] a few weeks ago and he refused, continues to decline cath here. He was discharged on 12.5 mg carvedilol BID, 10 mg lisinopril and ASA at that time and reportedly did not excelsior picker these medications. Remains on IV diuresis today with Lasix BID. Fluid restriction. No chest pain. Troponins flat. No ACS suspected. Cardiology following -appreciate recommendations. Discussed case with Dr Nevarez, plan to continue IV diuresis and possible discharge 1 to 2 days. He is known to have issues with medication compliance and despite repeated teaching, feel that he has poor insight regarding his medical conditions. (2) Pulmonary emboli: Code(s): I26.99 - Other pulmonary embolism without acute cor pulmonale Status: Acute Assessment and Plan: CTA from [place] 11/13/19 reads ?possible nonocclusive subsegmental right lower lobe pulmonary embolism and he was discharged on Xarelto. I am unsure if he picked up the Xarelto. Repeat CTA here is negative for pulmonary embolism. Venous Dopplers of lower extremities negative for DVT. Will stop Xarelto. (3) Hypertension: Code(s): I10 - Essential (primary) hypertension Status: Acute Assessment and Plan: BP stable. Continue Lasix, coreg, lisinopril, and spironolactone. (4) Thrombocytosis: Code(s): D47.3 - Essential (hemorrhagic) thrombocythemia Status: Acute Assessment and Plan: Improving. Will monitor. (5) Anasarca: Code(s): R60.1 - Generalized edema Status: Acute Assessment and Plan: Fluid overload secondary to CHF exacerbation. Continue diuresis with help from cardiology. (6) Wound, open, scrotum or testes: Code(s): S31.30XA - Unspecified open wound of scrotum and testes, initial encounter Status: Acute Assessment and Plan: Fissure likely from scrotal swelling. Continue silver gel and monitor. (7) Transaminitis: Code(s): R74.0 - Nonspecific elevation of levels of transaminase and lactic acid dehydrogenase [LDH] Status: Acute Assessment and Plan: Likely secondary to hepatic congestion. Hepatitis panel is negative. Abdominal CT at outside hospital reports unremarkable appearance to liver. Subjective Date/time seen: 12/08/19 1045 Interval history: Mr. Kim is a 49yo M admitted with fluid overload and CHF. He feels that his swelling has improved. He denies any chest pain, shortness of breath, or abdominal pain. Tolerating PO intake without nausea or vomiting. Exam Narrative: Exam Narrative: General: Male sitting on the edge of the bed in no acute distress. HEENT: Normocephalic, EOMI, oral mucosa moist. Cardiovascular: Rate and rhythm are regular. Telemetry review shows sinus tachycardia, rate 82. Respiratory: Clear to auscultation. Abdomen: Soft, mildly distended, nontender, bowel sounds present. Extremities: 2+ edema to bilateral lower extremities up to knees, tight woody edema. No pain to palpation. Neuro: No focal neurological deficits. Speech is clear. Poor insight regarding his medical conditions. Objective Data Vital Signs Vital Signs: Last Vital Signs Temp 97 F L 12/08/19 04:48 Pulse 87 12/08/19 08:39 Resp 18 12/08/19 08:39
[2019-12-09] VITALS (12 sets, daily range): BP systolic 106–127; BP diastolic 64–84; PULSE 72–87; RESP 16; TEMP 36.1–36.5; O2SAT 97–100
[2019-12-09 06:34] LABS: Blood Urea Nitrogen 34 mg/dL (9-20); Calcium 8.1 mg/dL (8.4-10.2); Carbon Dioxide 27 mmol/L (22-30); Chloride 103 mmol/L (98-107); Estimated CRCL calculation 58 ml/min; Estimated Glomerular Filt Rate > 60; Glucose 148 mg/dL (75-110); Potassium 3.9 mmol/L (3.4-5.0); Sodium 138 mmol/L (137-145)
--- NOTE | 2019-12-09 06:51 | WPDCDIQUERY2 ---
CDI Query Clarification Request -CTA chest- no pulmonary embolism -Problem list has pulmonary embolism, acute and Repeat CTA here is negative for pulmonary embolism. Venous Dopplers of lower extremities negative for DVT. Will stop Xarelto . Please clarify if Pulmonary Embolism was ruled in or ruled out
[2019-12-09] MEDS: POTASSIUM CHLORIDE 20 MEQ TABLET.ER PO (09:58)
[2019-12-09] MEDS: carvediloL 12.5 MG TABLET PO ×2 (09:58→20:17)
[2019-12-09] MEDS: FUROSEMIDE INJ 40 MG/4 ML VIAL IV PUSH ×2 (09:58→20:17)
[2019-12-09] MEDS: ASPIRIN 81 MG ENTERIC TABLET PO (09:59)
[2019-12-09] MEDS: ATORVASTATIN 40 MG TABLET PO (09:59)
[2019-12-09] MEDS: SPIRONOLACTONE 25 MG TABLET PO (09:59)
[2019-12-09] MEDS: lisinopriL 20 MG TABLET PO (09:59)
--- NOTE | 2019-12-09 15:22 | PM.PNCARD ---
Progress Note: A&P Assessment and Plan (1) Congestive heart failure: Qualifiers: Heart failure chronicity: acute on chronic Heart failure type: systolic Qualified Code(s): I50.23 - Acute on chronic systolic (congestive) heart failure Code(s): I50.9 - Heart failure, unspecified Status: Acute Assessment and Plan: Systolic congestive heart failure. Ischemic vs non ischemic cardiomyopathy. He is declining left heart cath so far but today more open to think about it. He remains volume overloaded Continue IV lasix. Creatinine up to 1.5 but that is possibly related to newly introduced Lisinopril and Spironolactone. Also received contrast for CT rule out PE Will continue current dose of Lasix Continue Coreg 12.5 Follow in/out. Follow creatinine and electrolytes (2) Anasarca: Code(s): R60.1 - Generalized edema Status: Acute Assessment and Plan: better. Continue IV diuresing (3) Hypertension: Code(s): I10 - Essential (primary) hypertension Status: Acute Assessment and Plan: Well controlled Subjective Date/time seen: 12/09/19 15:22 Feels well today, shortness of breath is better, leg swelling is significantly better Objective Data Vital Signs Vital Signs: Vital Signs - 24 hr 12/08/19 16:00 12/08/19 21:26 12/08/19 22:00 Temperature 36.1 C L Pulse Rate 74 82 86 Respiratory Rate 18 Blood Pressure 131/94 H Pulse Oximetry 100 12/09/19 00:00 12/09/19 04:00 12/09/19 06:00 Temperature 36.5 C Pulse Rate 82 85 83 Respiratory Rate 16 Blood Pressure 116/66 Pulse Oximetry 100 12/09/19 08:00 12/09/19 09:58 12/09/19 12:00 Temperature Pulse Rate 87 72 72 Respiratory Rate Blood Pressure Pulse Oximetry 12/09/19 14:00 Temperature 36.1 C L Pulse Rate 84 Respiratory Rate 16 Blood Pressure 106/64 Pulse Oximetry 100 Intake/Output Intake/Output: Intake & Output 12/06/19 12/07/19 12/08/19 12/09/19 23:59 23:59 23:59 23:59 Intake Total 3210 1230 2060 1125 Output Total 3900 1900 3400 2019 Balance -263 -687 -1340 -895 Meds/Results Medications: Active Medications Generic Name Dose Route Start Last Admin Trade Name Freq PRN Reason Stop Dose Admin Aspirin 81 mg 12/06/19 09:00 12/09/19 09:59 Aspirin Ec PO 81 mg QAM VERA Administration Atorvastatin Calcium 40 mg 12/06/19 09:00 12/09/19 09:59 Lipitor PO 40 mg DAILY VERA Administration Carvedilol 12.5 mg 12/06/19 09:00 12/09/19 09:58 Coreg PO 12.5 mg Q12HR VERA Administration Furosemide 40 mg 12/04/19 09:00 12/09/19 09:58 Lasix Inj IV PUSH 40 mg Q12HR VERA Administration Hydralazine HCl 10 mg 12/04/19 16:18 12/04/19 16:51 Apresoline Hcl Inj IV PUSH 10 mg Q6H PRN Administration Blood Pressure - High Lisinopril 20 mg 12/05/19 09:00 12/09/19 09:59 Prinivil PO 20 mg QAM VERA Administration Potassium Chloride 20 meq 12/08/19 09:00 12/09/19 09:58 Kcl Tablet PO 20 meq QAM VERA Administration Silver Nitrate 1 applic 12/04/19 09:00 12/07/19 09:17 Silvergel TOPICAL 1 applic Q72HR VERA Administration Spironolactone 25 mg 12/05/19 09:00 12/09/19 09:59 Aldactone PO 25 mg QAM VERA Administration Radiology Results: ITS Impressions Chest X-Ray 12/03/19 20:02 IMPRESSION: Findings consistent with moderate CHF exacerbation. Chest CTA 12/07/19 09:36 IMPRESSION: 1. No pulmonary embolus. 2. Mild pulmonary edema. 3. Small pleural effusions. 4. Airspace opacities in right lower lobe, consistent with atelectasis versus pneumonia. 5. Cardiomegaly. 6. Small pericardial effusion. Venous Doppler Study 12/08/19 09:19 IMPRESSION: 1. No deep venous thrombosis. Labs Labs: Laboratory Results - last 24 hr 12/09/19 05:38 Sodium 138 Potassium 3.9 Chloride 103 Carbon Dioxide 27 BUN 34 H Creatinine 1.50 H Estim Creat Clear Calc 58
--- NOTE | 2019-12-09 16:12 | PM.IMPN ---
Progress Note: A&P Assessment and Plan (1) Congestive heart failure: Qualifiers: Heart failure chronicity: acute on chronic Heart failure type: systolic Qualified Code(s): I50.23 - Acute on chronic systolic (congestive) heart failure Code(s): I50.9 - Heart failure, unspecified Status: Acute Assessment and Plan: Patient records from 11/13/19 - 11/16/19 admission at [place] reviewed. Echocardiogram shows reduced systolic function, EF 25-30%. Cardiac catheterization was recommended at [place] a few weeks ago and he refused, continues to decline cath here. He was discharged on 12.5 mg carvedilol BID, 10 mg lisinopril and ASA at that time and reportedly did not pear picker these medications. Remains on IV diuresis today with Lasix BID. Fluid restriction. No chest pain. Troponins flat. No ACS suspected. Cardiology following -appreciate recommendations. May be appropriate for discharge tomorrow. He is known to have issues with medication compliance and despite repeated teaching, feel that he has poor insight regarding his medical conditions. (2) Pulmonary emboli: Code(s): I26.99 - Other pulmonary embolism without acute cor pulmonale Status: Ruled-out Assessment and Plan: CTA from [place] 11/13/19 reads ?possible nonocclusive subsegmental right lower lobe pulmonary embolism and he was discharged on Xarelto. I am unsure if he picked up the Xarelto. Repeat CTA here is negative for pulmonary embolism. Venous Dopplers of lower extremities negative for DVT. Xarelto was stopped. (3) Hypertension: Code(s): I10 - Essential (primary) hypertension Status: Chronic Assessment and Plan: BP stable. Continue Lasix, coreg, lisinopril, and spironolactone. (4) Thrombocytosis: Code(s): D47.3 - Essential (hemorrhagic) thrombocythemia Status: Acute Assessment and Plan: Improving. Will monitor. (5) Anasarca: Code(s): R60.1 - Generalized edema Status: Acute Assessment and Plan: Fluid overload secondary to CHF exacerbation. Continue diuresis with help from cardiology. (6) Wound, open, scrotum or testes: Code(s): S31.30XA - Unspecified open wound of scrotum and testes, initial encounter Status: Acute Assessment and Plan: Fissure likely from scrotal swelling. Continue silver gel and monitor. (7) Transaminitis: Code(s): R74.0 - Nonspecific elevation of levels of transaminase and lactic acid dehydrogenase [LDH] Status: Acute Assessment and Plan: Likely secondary to hepatic congestion. Hepatitis panel is negative. Abdominal CT at outside hospital reports unremarkable appearance to liver. Recheck in AM. Subjective Date/time seen: 12/09/19 1100 Interval history: Mr. Kim is a 49yo M admitted with fluid overload and CHF. He feels well, no complaints. He denies any chest pain, shortness of breath, or abdominal pain. Tolerating PO intake without nausea or vomiting. He reports last BM was earlier this morning. Review of Systems Review of Systems: Narrative: Twelve systems were reviewed with pertinent positives and negatives as per HPI. Exam Narrative: Exam Narrative: General: Male sitting on the edge of the bed in no acute distress. HEENT: Normocephalic, EOMI, oral mucosa moist. Cardiovascular: Rate and rhythm are regular. Telemetry review shows sinus tachycardia with some PVCs, rate 77. Respiratory: Clear to auscultation. Nonlabored. Tolerating room air. Abdomen: Soft, mildly distended, nontender, bowel sounds present. Extremities: 2+ edema to bilateral lower extremities up to knees, tight woody edema. Improved. No pain to palpation. Neuro: No focal neurological deficits. Speech is may
[2019-12-10] VITALS (8 sets, daily range): BP systolic 113–138; BP diastolic 71–80; PULSE 75–83; RESP 16–18; TEMP 36.3–36.4; O2SAT 90–98
[2019-12-10 05:17] LABS: Hematocrit 32.4 % (42.0-52.0); Hemoglobin 10.1 g/dL (14.0-18.0); Mean Corpuscular HGB Conc 31.2 g/dl (32-36); Mean Corpuscular Hemoglobin 24.7 pg (26-34); Mean Corpuscular Volume 79.2 fl (80-100); Mean Platelet Volume 9.1 fl (7.4-10.4); Platelet Count Result 336 k/mm3 (150-375); Red Blood Count 4.09 M/mm3 (4.6-6.20); Red Cell Distribution Width 17.8 % (11.5-14.5); White Blood Count 5.3 K/mm3 (4.5-10.0)
[2019-12-10 05:29] LABS: Alanine Aminotransferase 62 U/L (4-50); Albumin Level 2.6 g/dL (3.5-5.1); Alkaline Phosphatase 124 U/L (38-126); Aspartate Amino Transferase 69 U/L (17-59); Bilirubin,Total 0.5 mg/dL (0.2-1.3); Blood Urea Nitrogen 34 mg/dL (9-20); Calcium 7.9 mg/dL (8.4-10.2); Carbon Dioxide 28 mmol/L (22-30); Chloride 102 mmol/L (98-107); Estimated CRCL calculation 58 ml/min; Estimated Glomerular Filt Rate > 60; Glucose 89 mg/dL (75-110); Potassium 3.9 mmol/L (3.4-5.0); Sodium 137 mmol/L (137-145)
[2019-12-10] MEDS: POTASSIUM CHLORIDE 20 MEQ TABLET.ER PO (08:58)
[2019-12-10] MEDS: ASPIRIN 81 MG ENTERIC TABLET PO (08:58)
[2019-12-10] MEDS: FUROSEMIDE INJ 40 MG/4 ML VIAL IV PUSH (08:58)
[2019-12-10] MEDS: SPIRONOLACTONE 25 MG TABLET PO (08:58)
[2019-12-10] MEDS: lisinopriL 20 MG TABLET PO (08:58)
[2019-12-10] MEDS: SILVERGEL (ELTA) 45 ML 1 APPLIC TOPICAL (08:58)
[2019-12-10] MEDS: ATORVASTATIN 40 MG TABLET PO (08:58)
[2019-12-10] MEDS: carvediloL 12.5 MG TABLET PO (09:02)
--- NOTE | 2019-12-10 14:53 | PM.PNCARD ---
Progress Note: A&P Assessment and Plan (1) Congestive heart failure: Qualifiers: Heart failure chronicity: acute on chronic Heart failure type: systolic Qualified Code(s): I50.23 - Acute on chronic systolic (congestive) heart failure Code(s): I50.9 - Heart failure, unspecified Status: Acute Assessment and Plan: Better compensated. Declined cath. Will consider outpatient stress testing Stable for discahrge from cardiac standpoint on current regimen (2) Hypertension: Code(s): I10 - Essential (primary) hypertension Status: Chronic Assessment and Plan: Well controlled Additional Plan Thank you for allowing me to participate in this patient's care, I will be following up with you. Please do not hesitate to call me for any other inquiry Subjective Date/time seen: 12/10/19 14:53 Feels good and ready to go home. Review of Systems Review of Systems: All systems reviewed & are unremarkable except as noted in HPI and below Constitutional: Constitutional: Denies fatigue and Denies headache(s) Eyes: Eyes: Denies blurry vision ENT: Reports Normal hearing present and Denies headache(s) Cardiovascular: Cardiovascular: Denies chest pain, Denies diaphoresis, Denies pedal edema, Denies leg edema, Denies lightheadedness, Denies palpitations and Denies dyspnea Respiratory: Respiratory: Denies cough and Denies dyspnea Gastrointestinal: Gastrointestinal: Denies abdominal pain Musculoskeletal: Musculoskeletal: Denies back pain Neurologic: Reports Normal hearing present and Denies headache(s) Psychiatric: Psychiatric: Denies anxiety Endocrine: Endocrine: Denies fatigue and Denies palpitations Exam Narrative: Exam Narrative: Awake alert oriented x3 not in acute distress Neck is supple, he has JVD, no carotid bruit Chest: Decreased breathing sound noted at the bases bilaterally Cardiovascular: Regular rate and rhythm, 2/6 systolic murmur noted left sternal border Abdomen: Soft nontender bowel sounds positive Extremities: +3 edema has good pulses distally bilaterally Const: General: no acute distress Nutritional Appearance: well nourished Orientation/consciousness: patient oriented x3 HENMT: Head: normal to inspection and atraumatic Ears: hearing grossly normal bilaterally Face and sinus: normal facial exam Eyes: General: appearance normal, both eyes and all related structures Pupils: Equal, round and reactive pupils present EOM: EOMs intact bilaterally Neck: Neck: supple Chest: Chest palpation & inspection: normal inspection of the chest Resp: Effort & Inspection: normal respiratory effort and no respiratory distress Auscultation: clear to auscultation bilaterally Cardio: Jugular venous distension: no JVD Rate: regular rate Heart sounds: S1 normal heart sound present, S2 normal heart sound present and no murmurs Peripheral pulses: Peripheral pulses 2+ throughout GI: Auscultation: normal bowel sounds Skin: General skin exam: normal color Neuro: General: patient oriented x3 Cranial nerves: Yes Equal, round and reactive pupils present and Yes Normal hearing present Extrem: General: edema (2+) bilateral Objective Data Vital Signs Vital Signs: Vital Signs - 24 hr 12/09/19 19:52 12/09/19 20:00 12/09/19 20:17 Temperature 36.2 C L Pulse Rate 84 76 84 Respiratory Rate 16 Blood Pressure 127/84 Pulse Oximetry 97 12/09/19 20:19 12/10/19 00:00 12/10/19 04:00 Temperature Pulse Rate 84 79 83 Respiratory Rate 16 Blood Pressure Pulse Oximetry 97 12/10/19 05:36 12/10/19 08:00 12/10/19 09:00 Temperature 36.4 C L Pulse Rate 81 79 79 Respiratory Rate 16 18 18 Blood Pressure 119/80 138/73 Pulse Oximetry 90 96 96 12/10/19 09:02 12/10/19 12:00 12/10/19 14:00 Temperature 36.3 C L Pulse Rate 79 75 79 Respiratory Rate 18 Blood Pressure 113/71 Pulse Oximetry 98 Intake/Output Intake/Output: Intake & Output 0
--- NOTE | 2019-12-10 19:53 | PM.DS ---
DS: Diagnosis Admitting Diagnosis Admitting Diagnosis: Hypertensive heart disease with heart failure Discharge Diagnosis (1) Congestive heart failure: Qualifiers: Heart failure chronicity: acute on chronic Heart failure type: systolic Qualified Code(s): I50.23 - Acute on chronic systolic (congestive) heart failure Code(s): I50.9 - Heart failure, unspecified Status: Acute Assessment and Plan: Date of Service 12/10/19 Mr. Kim is a 49yo M with hypertension and congestive heart failure who presented to the ED for evaluation of leg swelling. He was noted to have diffuse edema from bilateral lower extremities up to abdomen. Chest XR showed cardiomegaly and moderate pulmonary congestion. He had just been discharged from [facility] 11/16/19 for same. 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 Echocardiogram revealed systolic dysfunction with EF 25-30% (detailed below). Dr Martin, Cardiology, was consulted. Declines cardiac catheterization. He was aggressively diuresed with IV lasix and kept on a fluid restriction. He was started on Coreg, lisinopril, spironolactone, and IV lasix was switched to oral lasix at discharge. Records show he was started on Xarelto at [place] due to CTA chest reading of possible PE . CTA chest repeated here and negative for PE, lower extremity dopplers negative for DVT and Xarelto was stopped. His swelling was greatly improved after IV lasix and he was hemodynamically stable for discharge 12/10/19. I scheduled a follow up appointment with Dr Martin for next week and repeat lab work to monitor electrolytes. Discussed at length the importance of medication compliance and low sodium diet. He has very poor insight regarding his medical conditions despite repeated teaching. Consultations: Dr Martin, Cardiology. Patient records from 11/13/19 - 11/16/19 admission at [place] reviewed. Echocardiogram shows reduced systolic function, EF 25-30%. Cardiac catheterization was recommended at [place] a few weeks ago and he refused, continues to decline cath here. 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 Remains on IV diuresis today with Lasix BID. Fluid restriction. No chest pain. Troponins flat. No ACS suspected. He is known to have issues with medication compliance and despite repeated teaching, feel that he has poor insight regarding his medical conditions. (2) Pulmonary emboli: Code(s): I26.99 - Other pulmonary embolism without acute cor pulmonale Status: Ruled-out Assessment and Plan: CTA from [place] 11/13/19 reads ?possible nonocclusive subsegmental right lower lobe pulmonary embolism and he was discharged on Xarelto. I am unsure if he picked up the Xarelto. Repeat CTA here is negative for pulmonary embolism. Venous Dopplers of lower extremities negative for DVT. Xarelto was stopped. (3) Hypertension: Code(s): I10 - Essential (primary) hypertension Status: Chronic Assessment and Plan: BP stable. Continue Lasix, coreg, lisinopril, and spironolactone. (4) Thrombocytosis: Code(s): D47.3 - Essential (hemorrhagic) thrombocythemia Status: Acute Assessment and Plan: Improved. (5) Anasarca: Code(s): R60.1 - Generalized edema Status: Acute Assessment and Plan: Fluid overload secondary to CHF exacerbation. Improved. (6) Wound, open, scrotum or testes: Code(s): S31.30XA - Unspecified open wound of scrotum and testes, initial encounter Status: Acute Assessment and Plan: [facility]
== END 2019-12-10 17:14 | disposition home or self-care (01) | DRG 293 ==
LOC: ANHED 12-04 → ANH3MEDSUR 12-04 00:17 → ANH3MED 12-04 01:28
PROVIDERS: Physician Assistant; Admitting Provider Internal Medicine; Emergency Provider Emergency Medicine; PCP Internal Medicine; Visit Provider Family Medicine
DX: I11.0 Hypertensive heart disease with heart failure (principal); I50.23 Acute on chronic systolic (congestive) heart failure; Z28.21 Immunization not carried out because of patient refusal; Z87.891 Personal history of nicotine dependence; D47.3 Essential (hemorrhagic) thrombocythemia; R60.1 Generalized edema; N50.89 Other specified disorders of the male genital organs
CPT/HCPCS: 36415; 71046; 71275; 80048; 80053; 80061; 80069; 80074; 80076; 81001; 81050; 82570; 83735; 83880; 84100; 84156; 84443; 84484; 85025; 85027; 85610; 85730; 93005; 93306; 93970; 96374; 99285; A9270; G0378; J0360; J1940; Q9967